=== PATIENT | female | born 1930 | race Caucasian/White ===

== ENCOUNTER 2017-05-09 12:28 | Emergency (ER) | payer MEDICARE ==
[~2017-05-09] VITALS: Ht 162.6 cm; Wt 74.8 kg
--- NOTE | ~2017-05-09 | CR58 ---
[facility] A Service of [facility] RADIOLOGY TEXT RESULTS PATIENT: HARDIK AGUIRRE LOCATION: [facility] : [birth year] UNIT #: [id number] AGE: [address]: Dylan Marrero MD SEX: F ORDER DR: [id number] [facility] [address] [place], [place] [address] [id number] E MR#: [id number] Acc #: [id number] NAME: HARDIK AGUIRRE. : 1930 SEX: F STUDY DATE/TIME: 05/09/2017 14:23 UNIT: [facility] ROOM: STUDY DESCRIPTION: CR Cervical Spine 2 or 3 Views Attending Physician: Dylan Marrero M.D. Ordering Physician: Ti Hou M.D. Primary Care Physician: Generic Doctor Not In System MEDICAL IMAGING REPORT This report is preliminary unless electronic signature is present EXAM Cervical spine 3 views HISTORY Neck pain after fall yesterday. FINDINGS 3 views of the cervical spine demonstrate straightening of the normal cervical lordosis. Moderately severe degenerative disc space narrowing at C3-4, C5-6 and C6-7 and moderate disc space narrowing at C4-5. Additional [id number]-fq-dxoqfqpm hypertrophic changes upper and lower cervical spine. Generalized demineralization. No fracture or subluxation or precervical soft tissue swelling. Mild right cervical curve. IMPRESSION 1. Degenerative changes upper and lower cervical spine including multilevel advanced degenerative disc space narrowing and moderate hypertrophic changes. 2. No acute findings. 3. No fracture or subluxation. Dictated by... Jaydon Paulson M.D. THIS IS AN ELECTRONICALLY VERIFIED REPORT Jaydon Paulson M.D. at 05/10/2017 2:14 PM DFL/tyson TD: 05/10/2017 03:08 [facility] A Service of [facility] RADIOLOGY TEXT RESULTS PATIENT: HARDIK AGUIRRE LOCATION: [facility] : [birth year] UNIT #: [id number] AGE: [address]: Dylan Marrero MD SEX: F ORDER DR: JOB #: [id number] MEDICAL IMAGING REPORT Page 1 of 1 COPY
--- NOTE | ~2017-05-09 | CT71 ---
[facility] A Service of [facility] RADIOLOGY TEXT RESULTS PATIENT: HARDIK AGUIRRE LOCATION: [facility] : [birth year] UNIT #: [id number] AGE: [address]: Dylan Marrero MD SEX: F ORDER DR: [id number] [facility] [address] [place], [place] [address] [id number] E MR#: [id number] Acc #: [id number] NAME: HARDIK AGUIRRE. : 1930 SEX: F STUDY DATE/TIME: 05/09/2017 15:02 UNIT: [facility] ROOM: STUDY DESCRIPTION: CT Head Wo Contrast Attending Physician: Tung Marrero M.D. Ordering Physician: Ed Doctor [id number] [facility] Primary Care Physician: Generic Doctor Not In System MEDICAL IMAGING REPORT This report is preliminary unless electronic signature is present EXAM CT of the head without contrast dated 05/09/2017. COMPARISON CT head without contrast dated 09/03/2015. HISTORY Status post fall last p.m. Abrasion to the forehead and pain. TECHNIQUE This CT exam was performed with one or more of the following radiation dose reduction techniques: automatic exposure control, adjustment of mA and/or kV according to patient size, and iterative reconstruction. FINDINGS CT of the head was obtained without contrast in the axial plane as per the protocol. There is a hyperdense mass along the left side of the anterior falx cerebri along the convexity and in the posterosuperior left frontal region. It measures 1.5 x 1.1 cm and is relatively stable given differences in slice selection. Mild hypodensities are noted in the white matter particularly in bifrontal periventricular white matter and in the bilateral basal ganglia (particularly in the right). Stable. No acute intracranial hemorrhage, hydrocephalus or midline shift. Atherosclerotic arteriovascular calcifications are seen. No acute fracture. Nasal septum is deviated to the left. Mild right mastoid mucosal thickening is noted with frothiness. Status post bilateral cataract surgery. No foreign bodies are noted in the face. There is history of abrasion and swelling which probably is in the right side of the forehead extending from the midline. IMPRESSION 1. No acute intracranial hemorrhage or fracture. [facility]. [facility] A Service of [facility] & [facility] RADIOLOGY TEXT RESULTS PATIENT: HARDIK AGUIRRE LOCATION: [facility] : [birth year] UNIT #: [id number] AGE: [address]: Dylan Marrero MD SEX: F ORDER DR: 2. Minimal soft tissue prominence is noted in the uuj-fz-ivlas side of the forehead. It is probably the site of injury. No foreign bodies. 3. Stable dural-based 1.5 x 1.1 cm hyperdense mass in the superior and posterior left frontal region, abutting the left side of the falx cerebri. 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 4. Mild right sphenoid sinus mucosal thickening with some frothiness. Correlate with sinusitis. Dictated by... Unruly Chung M.D. THIS IS AN ELECTRONICALLY VERIFIED REPORT Unruly Chung M.D. at 05/10/2017 4:47 PM CPR/ea TD: 05/10/2017 03:26 JOB #: [id number] MEDICAL IMAGING REPORT Page 1 of 1 COPY
[~2017-05-09 12:28] MED LIST: ACETAMINOPHEN650 M3 PO; ASPIRIN ENTERI325 M1 PO; ATENOLOL25 MG PO; BACTRIM DS TABL1 TA2 PO; BAYER ASPIRIN325 M1 PO; BAYER CHEWABLE81 MG PO; DIFLUCAN100 MG PO; FAMOTIDINE PO; FAMOTIDINE20 M1 PO; HYDROCHLOROTHIA25 MG PO; LISINOPRIL20 MG PO; OSTEO BI-FLEX1 EAC1 PO; PHENYTOIN SODI100 M4 PO; TYLENOL325 M1 PO; ZOCOR20 MG PO; ZOFRAN4 MG/5 ML IV
== END 2017-05-09 16:12 | disposition home or self-care (01) ==
LOC: CED 12:28
DX: S13.9XXA Sprain of joints and ligaments of unspecified parts of neck, initial encounter (principal); S51.011A Laceration without foreign body of right elbow, initial encounter; S00.93XA Contusion of unspecified part of head, initial encounter; I10 Essential (primary) hypertension; W01.0XXA Fall on same level from slipping, tripping and stumbling without subsequent striking against object, initial encounter; Y92.009 Unspecified place in unspecified non-institutional (private) residence as the place of occurrence of the external cause; R56.9 Unspecified convulsions
CPT/HCPCS: 70450; 72040; 90715; 99284